=== PATIENT | female | born 1945 | race Caucasian/White ===

== ENCOUNTER → 2016-11-29 | Outpatient (CLI) | payer OTHER ==
--- NOTE | 2016-11-29 14:58 | RADRPT ---
EXAM DATE/TIME: 11/29/2016 00:00 [place] COMPARISON: No previous studies available for comparison. INDICATIONS : Bilateral Leg Pain TECHNIQUE: Five-station segmental examination of the lower extremities was performed pre and post extercise. Pulsed-cuff waveform tracings and pressures were recorded. Ankle-brachial indices and toe-brachial indices were calculated. PRESSURES (mmHg): Pre Exercise: Brachial (arm): Right 134 Left 135 Lower Thigh: Right 169 Left 157 Calf: Right 156 Left 165 Ankle: Right 160 Left 154 ELIESER: Right 1.19 Left 1.14 TBI: Right 0.76 Left 0.84 Post Exercise: Brachial (arm): Left 154 Ankle: Right 186 Left 162 PULSED CUFF WAVEFORMS: Demonstrate normal amplitude bilaterally. CONCLUSION: Unremarkable segmental evaluation of the lower extremities. Juni White MD on November 29, 2016 at 14:55 Board Certified Radiologist. This report was verified electronically.
== END ==
LOC: HCAV 12:35
DX: M79.605 Pain in left leg (principal); M79.604 Pain in right leg
CPT/HCPCS: 93924